=== PATIENT | male | born 1980 | race Caucasian/White ===

== ENCOUNTER → 2018-09-25 | Outpatient (CLI) | payer BC ==
--- NOTE | 2018-09-25 09:03 | RAD ---
TESTICULAR/SCROTUM: 09/25/2018 8:00 AM INDICATION: 37 years old Male. Right testicular mass. COMPARISON: None. FINDINGS: Sonographic evaluation of the testicles was performed utilizing grayscale, color Doppler and spectral waveform analysis. Right: Testicle: Normal in echotexture without focal lesion. Microlithiasis is identified. Size: 4.2 x 2.8 x 2.2 cm. Flow: Normal color Doppler flow pattern. Epididymis: There is a 1.6 x 2.2 x 1.8 cm epididymal cyst involving the head of the epididymis with few internal echoes. Hydrocele: None. Varicocele: None. Left: Testicle: Normal in echotexture without focal lesion. Microlithiasis is identified. Size: 2.8 x 2.7 x 1.9 cm. Flow: Normal color Doppler flow pattern. Epididymis: Normal in size and echotexture without focal lesion. Hydrocele: None. Varicocele: None. IMPRESSION: 1. Right epididymal head cyst measuring 1.6 x 2.2 x 1.8 cm with minimal internal septations. Findings may be secondary to debris or hemorrhage within the cyst. Correlate with any signs and symptoms of superimposed infection. 2. Perfusion is noted the testicles bilaterally at the time of imaging. 3. Microlithiasis. Electronically signed by: Otilia Jay MD (09/25/2018 9:01 AM) [id number]
== END | disposition home or self-care (01) ==
LOC: US 07:48
PROVIDERS: ATTEND Family Medicine
DX: N50.3 Cyst of epididymis (principal); N50.89 Other specified disorders of the male genital organs
CPT/HCPCS: 76870

== ENCOUNTER 2019-03-18 12:52 | Emergency (ER) | payer BC ==
[~2019-03-18] VITALS: Ht 182.9 cm; Wt 172.4 kg
[2019-03-18 13:17] VITALS: BP 163/115
[2019-03-18 13:44] LABS: BASO # 0.1 x10^3/uL (0.0-0.2); BASO % 1 % (0-3); EOS # 0.2 x10^3/uL (0.0-0.7); EOS % 2 % (0-3); HEMATOCRIT 44.3 % (39.0-53.0); HEMOGLOBIN 14.9 g/dL (13.0-17.5); LYMPH # 2.4 x10^3/uL (1.0-4.8); LYMPH % 17 % (24-48); MEAN CORPUSCULAR HEMOGLOBIN 30 pg (25-35); MEAN CORPUSCULAR HGB CONC 34 g/dL (31-37); MEAN CORPUSCULAR VOLUME 88 fL (79-100); MONO # 0.9 x10^3/uL (0.0-1.1); MONO % 7 % (0-9); NEUT # 10.1 x10^3uL (1.8-7.7); NEUT % 74 % (31-73); PLATELET COUNT 328 x10^3/uL (140-400); RED BLOOD COUNT 5.03 x10^6/uL (4.30-5.70); RED CELL DISTRIBUTION WIDTH 13.9 % (11.5-14.5); WHITE BLOOD COUNT 13.6 x10^3/uL (4.0-11.0)
[2019-03-18 13:59] LABS: CALCIUM 8.6 mg/dL (8.5-10.1); CREATININE 0.9 mg/dL (0.7-1.3); POTASSIUM 3.8 mmol/L (3.5-5.1)
[2019-03-18] MEDS ORDERED: IOHEXOL 300 MG/ML 75 ML VIAL. IV ONE (14:00)
[2019-03-18] MEDS ORDERED: IOHEXOL 300 MG/ML 50 ML VIAL. IV ONE ×2 (14:00)
[2019-03-18 14:02] LABS: ALBUMIN 3.4 g/dL (3.4-5.0); ALBUMIN/GLOBULIN RATIO 0.9 (1.0-1.7); TOTAL BILIRUBIN 0.2 mg/dL (0.2-1.0); TOTAL PROTEIN 7.4 g/dL (6.4-8.2)
--- NOTE | 2019-03-18 14:04 | PHYS DOC ---
Past History Past Medical History: Hypertension Past Surgical History: No Surgical History Alcohol Use: None Drug Use: None Adult General Chief Complaint Chief Complaint: ABDOMINAL PAIN HPI HPI 38-year-old male presents with left-sided abdominal pain. The patient had abdominal cramping and vomiting yesterday. He only had one episode seemed to get better overnight. The patient has had 2 additional episodes today. The abdominal pain is now moderate, crampy persistent. It is just left of the umbilicus. Patient denies fever, chills, diarrhea. He has no history of abdominal surgeries or other abnormalities. Review of Systems Review of Systems Constitutional: Denies fever or chills [] Eyes: Denies change in visual acuity, redness, or eye pain [] HENT: Denies nasal congestion or sore throat [] Respiratory: Denies cough or shortness of breath [] Cardiovascular: No additional information not addressed in HPI [] GI: Left-sided abdominal pain, nausea, vomiting. Denies bloody stools or diarrhea [] : Denies dysuria or hematuria [] Musculoskeletal: Denies back pain or joint pain [] Integument: Denies rash or skin lesions [] Neurologic: Denies headache, focal weakness or sensory changes [] Endocrine: Denies polyuria or polydipsia [] All other systems were reviewed and found to be within normal limits, except as documented in this note. Current Medications Current Medications Current Medications Medications (Trade) Dose Ordered Sig/Daniel Start Time Stop Time Status Last Admin Dose Admin Iohexol (Omnipaque 300 Mg/ml) 100 ml 1X ONCE 03/18/19 14:00 03/18/19 14:01 Allergies Allergies Allergies Coded Allergies Type Severity Reaction Last Updated Verified No Known Drug Allergies 03/18/19 No Physical Exam Physical Exam Constitutional: Well developed, morbidly obese, well nourished, no acute distress, non-toxic appearance. [] HENT: Normocephalic, atraumatic, bilateral external ears normal, oropharynx moist, no oral exudates, nose normal. [] Eyes: PERRLA, EOMI, conjunctiva normal, no discharge. [] Neck: Normal range of motion, no tenderness, supple, no stridor. [] Cardiovascular:Heart rate regular rhythm, no murmur [] Lungs & Thorax: Bilateral breath sounds clear to auscultation [] Abdomen: Bowel sounds normal, soft, mild left-sided tenderness, no masses, no pulsatile masses. [] Skin: Warm, dry, no erythema, no rash. [] Back: No tenderness, no CVA tenderness. [] Extremities: No tenderness, no cyanosis, no clubbing, ROM intact, no edema. [] Neurologic: Alert and oriented X 3, normal motor function, normal sensory function, no focal deficits noted. [] Psychologic: Affect normal, judgement normal, mood normal. [] Current Patient Data Vital Signs Vital Signs Date Time Temp Pulse Resp B/P (MAP) Pulse Ox O2 Delivery O2 Flow Rate FiO2 03/18/19 13:17 98.0 98 16 99 Room Air Lab Results Laboratory Tests Test 03/18/19 13:28 White Blood Count 13.6 x10^3/uL (4.0-11.0) H Red Blood Count 5.03 x10^6/uL (4.30-5.70) Hemoglobin 14.9 g/dL (13.0-17.5) Hematocrit 44.3 % (39.0-53.0) Mean Corpuscular Volume 88 fL (79-100) Mean Corpuscular Hemoglobin 30 pg (25-35) Mean Corpuscular Hemoglobin Concent 34 g/dL (31-37) Red Cell Distribution Width 13.9 % (11.5-14.5) Platelet Count 328 x10^3/uL (140-400) Neutrophils (%) (Auto) 74 % (31-73) H Lymphocytes (%) (Auto) 17 % (24-48) L Monocytes (%) (Auto) 7 % (0-9) Eosinophils (%) (Auto) 2 % (0-3) Basophils (%) (Auto) 1 % (0-3) Neutrophils # (Auto) 10.1 x10^3uL (1.8-7.7) H Lymphocytes # (Auto) 2.4 x10^3/uL (1.0-4.8) Monocytes # (Auto) 0.9 x10^3/uL (0.0-1.1) Eosinophils # (Auto) 0.2 x10^3/uL (0.0-0.7) Basophils # (Auto) 0.1 x10^3/uL (0.0-0.2) Sodium Level 140 mmol/L (136-145) Potassium Level 3.8 mmol/L (3.5-5.1) Chloride Level 105 mmol/L (98-107) Carbon Dioxide Level 27 mmol/L (21-32) Anion Gap 8 (6-14) Blood Urea Nitrogen 9 mg/dL (8-26) Creatinine 0.9 mg/dL (0.7-1.3) Estimated GFR (Cockcroft-Gault) 95.0 BUN/Creatinine Ratio 10 (6-20) Glucose Level 109 mg/dL (70-99) H Calcium Level 8.6 mg/dL (8.5-10.1) Total Bilirubin Pending Aspartate Amino Transferase (AST) Pending Alanine Aminotransferase (ALT) Pending Alkaline Phosphatase Pending Total Protein Pending Albumin Pending Albumin/Globulin Ratio Pending EKG EKG [] Radiology/Procedures Radiology/Procedures [] Impressions: EXAM: Abdomen and pelvis CT with intravenous contrast. HISTORY: Pain and urinary retention. TECHNIQUE: Computed tomographic images of the abdomen and pelvis were obtained following the administration of intravenous contrast. Multiplanar reformatting was performed. *One or more of the following individualized dose reduction techniques were utilized for this examination: 1. Automated exposure control. 2. Adjustment of the mA and/or kV according to patient size. 3. Use of iterative reconstruction technique. COMPARISON: None. FINDINGS: Evaluation of the lower thorax demonstrates no infiltrate or pleural effusion. The heart is normal in size. There is hepatic steatosis. No suspicious hepatic lesion is seen. The gallbladder, pancreas, spleen and adrenal glands are unremarkable. There is no evidence of nephrolithiasis. No solid or cystic renal lesion is seen. There is no hydronephrosis. The bladder is unremarkable. There is no appendicitis. There is no bowel obstruction. There is no abnormal bowel wall thickening. There is no lymphadenopathy. The aorta is normal in caliber. There is no suspicious osseous lesion. There is a small fat-containing umbilical hernia. IMPRESSION: 1. No acute abdominal or pelvic finding. 2. Suspected hepatic steatosis. 3. Small fat-containing abdominal hernia. Electronically signed by: Fadia Nuñez MD (03/18/2019 2:41 PM) [place] [id number] DICTATED AND SIGNED BY: FADIA NUÑEZ MD DATE: 03/18/19 [id number] CC: RIC MENDOZA DO; BRIANDA RODRIGUEZ ~ Course & Med Decision Making Course & Med Decision Making Pertinent Labs and Imaging studies reviewed. (See chart for details) The patient's labs are unremarkable. His CT is unremarkable except for some vascular disease. I believe the patient just got a viral gastrointestinal illness that other people having lately. I do not see anything life-threatening at this time. He is stable for discharge. [] Dragon Disclaimer Dragon Disclaimer This electronic medical record was generated, in whole or in part, using a voice recognition dictation system. Departure Departure: Impression: Primary Impression: Steatosis of liver Additional Impression: Viral gastroenteritis Disposition: HOME, SELF-CARE Condition: STABLE Referrals: BRIANDA RODRIGUEZ (PCP) Patient Instructions: Nausea and Vomiting, [id number] Scripts Ondansetron (ONDANSETRON ODT) 4 Mg Tab.rapdis 1 TAB PO PRN Q6-8HRS PRN for VOMITING, #16 TAB Prov: RIC MENDOZA DO 03/18/19 Problem Qualifiers RIC MENDOZA DO Mar 18, 2019 14:04
[2019-03-18 14:06] LABS: CLARITY,URINE CLEAR; COLOR,URINE ORANGE
[2019-03-18 14:08] LABS: BACTERIA,URINE 0 /HPF (0-FEW); SQUAMOUS EPITHELIAL CELL,UR MOD /LPF; WBC,URINE OCC /HPF (0-4)
--- NOTE | 2019-03-18 14:44 | RAD ---
EXAM: Abdomen and pelvis CT with intravenous contrast. HISTORY: Pain and urinary retention. TECHNIQUE: Computed tomographic images of the abdomen and pelvis were obtained following the administration of intravenous contrast. Multiplanar reformatting was performed. *One or more of the following individualized dose reduction techniques were utilized for this examination: 1. Automated exposure control. 2. Adjustment of the mA and/or kV according to patient size. 3. Use of iterative reconstruction technique. COMPARISON: None. FINDINGS: Evaluation of the lower thorax demonstrates no infiltrate or pleural effusion. The heart is normal in size. There is hepatic steatosis. No suspicious hepatic lesion is seen. The gallbladder, pancreas, spleen and adrenal glands are unremarkable. There is no evidence of nephrolithiasis. No solid or cystic renal lesion is seen. There is no hydronephrosis. The bladder is unremarkable. There is no appendicitis. There is no bowel obstruction. There is no abnormal bowel wall thickening. There is no lymphadenopathy. The aorta is normal in caliber. There is no suspicious osseous lesion. There is a small fat-containing umbilical hernia. IMPRESSION: 1. No acute abdominal or pelvic finding. 2. Suspected hepatic steatosis. 3. Small fat-containing abdominal hernia. Electronically signed by: Fadia Nuñez MD (03/18/2019 2:41 PM) [facility]
[2019-03-18] MEDS ORDERED: ONDA4TAB12 PO (14:57)
== END 2019-03-18 15:05 | disposition home or self-care (01) ==
LOC: ER 12:55
DX: K76.0 Fatty (change of) liver, not elsewhere classified (principal); A08.4 Viral intestinal infection, unspecified; I10 Essential (primary) hypertension
CPT/HCPCS: 36415; 74177; 80053; 81001; 85025; 99285; Q9967

== ENCOUNTER → 2021-02-15 | Outpatient (CLI) | payer BC ==
[~2021-02-15] MED LIST: ONDA4TAB12 PO
--- NOTE | 2021-02-15 09:44 | RAD ---
EXAM: XR ELBOW COMPLETE_RIGHT 3+ VIEWS 02/15/2021 9:04 AM CLINICAL INDICATION: Elbow pain after popping and a few weeks ago COMPARISON: None TECHNIQUE: 3 views of the right elbow FINDINGS: There is a 5 mm osseous density adjacent to the sublime tubercle of the coronoid process, possibly an avulsion fracture. No other fracture. Alignment is normal. Joint spaces are maintained. T here is no joint effusion or soft tissue abnormality. IMPRESSION: Possible small avulsion fracture of the sublime tubercle of the coronoid process. Correl ate for ulnar collateral ligament injury. Electronically signed by: Neela Brown MD (02/15/2021 9:42 AM) [id number]
== END ==
LOC: RAD 08:43
PROVIDERS: ATTEND Nurse Practitioner Family
DX: M25.521 Pain in right elbow (principal)
CPT/HCPCS: 73080

== ENCOUNTER 2021-05-16 15:46 | Emergency (ER) | payer SELFPAY ==
[~2021-05-16] VITALS: Ht 188 cm; Wt 232.2 kg
--- NOTE | 2021-05-16 16:21 | PHYS DOC ---
Past History Past Medical History: Hypertension Additional Past Medical Histor: ASTIGMATISM Past Surgical History: Other Additional Past Surgical Histo: ORAL SURGERY, WISDOM TEETH Alcohol Use: Rarely Drug Use: None General Adult EDM: Chief Complaint: HYPERTENSION HPI: HPI: Patient is a 40-year-old male sent over for a work physical for hypertension. Patient states his blood pressure was about 210/90. Patient was asymptomatic and is asymptomatic at this time. Patient states he has a known history of hypertension, but has not taken his losartan for the past 3 weeks. Patient states that he had a bottle but they had rearranges [place] but now he cannot find it. Review of Systems: Review of Systems: All other systems within normal limits except for as noted in the HPI Allergies: Allergies: Allergies Coded Allergies Type Severity Reaction Last Updated Verified No Known Drug Allergies 05/16/21 No Physical Exam: PE: Constitutional: Well developed, well nourished, no acute distress, non-toxic appearance. [] HENT: Normocephalic, atraumatic, bilateral external ears normal, nose normal. [] Eyes: PERRLA, conjunctiva normal, no discharge. [] Neck: No rigidity, supple, no stridor. [] Cardiovascular: Regular rate and rhythm, brisk cap refill [] Lungs & Thorax: Non labored symmetric respirations, no tachypnea or respiratory distress [] Abdomen: Soft, nondistended. Skin: Warm, dry, no erythema, no rash. [] Back: Unremarkable Extremities: No deformities, range of motion grossly intact, no lower extremity edema [] Neurologic: Alert and oriented X 3, no focal deficits noted. [] Psychologic: Affect normal, judgement normal, mood normal. [] Current Patient Data: Vital Signs: Vital Signs Date Time Temp Pulse Resp B/P (MAP) Pulse Ox O2 Delivery O2 Flow Rate FiO2 05/16/21 15:57 97.7 85 22 176/95 (122) 97 Room Air EKG: EKG: [] Radiology/Procedures: Radiology/Procedures: [] Heart Score: C/O Chest Pain: No Risk Factors: Risk Factors: DM, Current or recent (<one month) smoker, HTN, HLP, family history of CAD, obesity. Risk Scores: Score 0 - 3: 2.5% MACE over next 6 weeks - Discharge Home Score 4 - 6: 20.3% MACE over next 6 weeks - Admit for Clinical Observation Score 7 - 10: 72.7% MACE over next 6 weeks - Early Invasive Strategies Course & Med Decision Making: Course & Med Decision Making Patient with asymptomatic hypertension, blood pressure 171/84. Patient declines further work-up, will except a prescription for his losartan to be filled in case he cannot find his lost bottle. Discussed return precautions Virginie Disclaimer: Virginie Disclaimer: This electronic medical record was generated, in whole or in part, using a voice recognition dictation system. Departure Departure: Impression: Primary Impression: Asymptomatic hypertension Disposition: HOME / SELF CARE / HOMELESS Condition: STABLE Referrals: BRIANDA RODRIGUEZ (PCP) Patient Instructions: Hypertension Scripts Losartan Potassium (LOSARTAN POTASSIUM) 100 Mg Tablet 100 MG PO DAILY for HYPERTENSION for 30 Days, #30 TAB Prov: NICHOLAS VAZ MD 05/16/21 NICHOLAS VAZ MD May 16, 2021 16:21
[2021-05-16] MEDS ORDERED: LOSA100T14 PO (16:25)
[2021-05-16 16:32] VITALS: BP 165/95
== END 2021-05-16 16:33 | disposition home or self-care (01) ==
LOC: ER 15:46
DX: I10 Essential (primary) hypertension (principal)
CPT/HCPCS: 99281; 99283